=== PATIENT | female | born 1985 | race Caucasian/White ===

== ENCOUNTER 2016-05-22 12:30 | Observation (INO) | payer SELFPAY | END 2016-05-22 15:30 | disposition home or self-care (01) | LOC: FLD 12:30 | PROVIDERS: ADMIT Obstetrics & Gynecology; ATTEND Obstetrics & Gynecology | DX: O47.1 False labor at or after 37 completed weeks of gestation (principal); Z3A.38 38 weeks gestation of pregnancy | CPT/HCPCS: G0378 ==

== ENCOUNTER 2016-05-22 20:50 | Observation (INO) | payer SELFPAY ==
[2016-05-23] MEDS ORDERED: LR 500 ML IV ONE (01:00)
[2016-05-23] MEDS ORDERED: PROMETHAZINE HCL 25 MG/ML INJ IV ONE (01:00)
== END 2016-05-23 10:15 | disposition home or self-care (01) ==
LOC: FLD 20:50
PROVIDERS: ADMIT Obstetrics & Gynecology; ATTEND Obstetrics & Gynecology
DX: O47.1 False labor at or after 37 completed weeks of gestation (principal); Z3A.38 38 weeks gestation of pregnancy
CPT/HCPCS: G0378; J2550

== ENCOUNTER 2016-05-24 06:58 | Inpatient (IN) | payer SELFPAY ==
[2016-05-24] MEDS ORDERED: LIDOCAINE 1% 30 ML SDV SC PRN (07:12)
[2016-05-24] MEDS ORDERED: OXYTOCIN/RINGERS LACTATE 1,000 ML IV PRN (07:12)
[2016-05-24] MEDS ORDERED: EPSOM SALT 454 GM TP PRN (07:12)
[2016-05-24] MEDS ORDERED: TERBUTALINE SULFATE 1 MG/ML VIAL IV PRN (07:12)
[2016-05-24] MEDS ORDERED: LR 1,000 ML IV PRN (07:12)
[2016-05-24] MEDS ORDERED: MINERAL OIL 60 ML OIL TP PRN (07:12)
[2016-05-24] MEDS ORDERED: LIDOCAINE 1% 30 ML SDV ONE (07:16)
[2016-05-24] MEDS ORDERED: AMMONIA AROMATIC 1 EACH AMP IH ONE (07:16)
[2016-05-24] MEDS ORDERED: OXYTOCIN 10 UNIT/ML VIAL ONE (07:17)
[2016-05-24] MEDS ORDERED: MISOPROSTOL 200 MCG TAB ONE (07:17)
[2016-05-24] MEDS ORDERED: TERBUTALINE SULFATE 1 MG/ML VIAL ONE (07:17)
[2016-05-24 07:33] LABS: ADD DIFF? YES; ADD MORPH? NO; ADD SCAN? NO; ATYPICAL LYMPHOCYTE FLAG 0 (0-99); FRAGMENT RBC FLAG 0 (0-99); HEMATOCRIT 42.1 % (38.0-47.0); HEMOGLOBIN 14.7 g/dL (12.6-16.3); LEFT SHIFT FLG 0 (0-99); LIPEMIA HEMOLYSIS FLAG 90 (0-99); MEAN CELL HEMOGLOBIN 30.4 pg (27.9-34.1); MEAN CELL HEMOGLOBIN CONCENTR. 34.9 g/dL (32.4-36.7); MEAN CELL VOLUME 87.2 fL (81.5-99.8); MEAN PLATELET VOLUME 9.4 fL (8.7-11.7); PLATELET CLUMPS FLAG 20 (0-99); PLATELET COUNT 299 10^3/uL (150-400); RED BLOOD CELL COUNT 4.83 10^6/uL (4.18-5.33); RED CELL DISTRIBUTION WIDTH 12.5 % (11.5-15.2)
[2016-05-24 08:06] LABS: PLATELET ESTIMATE ADEQUATE (ADEQ)
--- NOTE | 2016-05-24 09:12 | GHP ---
[f rep st] PREOP HISTORY AND PHYSICAL DATE OF ADMISSION: 05/24/2016 HISTORY UPON ADMISSION: The patient is a 29-year-old , with estimated due date of June 03, 2016, who is at 38 weeks and 4 days who has had prodromal labor with contractions since May 21 in the evening. The patient has had many nights with little sleep. She was evaluated on May 22 and was finger tip, and again re-presented that night and was only 1 cm but having painful contractions for which she received morphine to sleep. She was able to sleep through several hours and went home the morning of May 23. She took Ambien in the afternoon on May 23 and was again able to sleep a couple hours; however, has had painful contractions throughout the night. The patient noted bloody show at approximately 2 a.m. Bag of water intact. The patient was having movement. Upon presentation this morning, the patient was 9 cm by cervical exam by the admitting nurse at -1 station with a bulging bag of water. The patient subsequently had spontaneous rupture of membranes at 0740 with clear fluid. CARE: The patient has been with [facility] with an initial visit at 11 weeks. However, then moved back to the area and has been seen since 25 weeks' gestation. The patient lives in [facility] and was only visiting here at 11 weeks and then moved to this area on a temporary visa in February. The patient has had potential Zika exposure in [facility] but has not been symptomatic. She had an ultrasound performed for growth at 29 weeks and had an estimated weight of 59th percentile with a biparietal diameter at 53rd percentile. There was normal fluid. The patient has had an uncomplicated other than symptoms consistent with the flu at 31 weeks. The patient used [id number] medications for cough and sore throat. LABS: The patient's blood type is A-negative with a negative antibody screen. The patient received RhoGAM on March 10. RPR nonreactive. Rubella immune. Hepatitis B surface antigen negative. HIV negative. TSH was normal. Cytomegalovirus IgG was elevated. Urinalysis and culture were negative. Gonorrhea and chlamydia were negative. The patient had a recent urinary tract infection when seen in November that had been treated with oral antibiotics. Verified testing was negative. One-hour Glucola was normal. Hematocrit checked several times remained in the normal range with the lowest at 38. GBS culture was negative. PAST MEDICAL HISTORY: Only occasional yeast infections and urinary tract infections. PAST SURGICAL HISTORY: Ear surgery at the age of 20 for cosmetic reasons. ALLERGIES: The patient has no known drug allergies. CURRENT MEDICATIONS: Only vitamins and folic acid. SOCIAL HISTORY: The patient is , lives with her , Mikal. 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 The patient and her live in [facility] and are here on a 6 month work visa. The patient is a nonsmoker. No alcohol or drug use. PHYSICAL EXAMINATION: GENERAL: Upon admission, the patient is a well developed , well nourished, female in physical distress with contractions and is exhausted. VITAL SIGNS: Normal. The patient is afebrile. See nursing notes for full documentation. heart tones have shown a category 1 tracing with baseline in the 130s with moderate variability and accelerations. No decelerations have been noted. Contractions are occurring approximately every 3 -4 minutes. CERVIX: On cervical exam the patient has an anterior lip and is at 0 station. The patient initially was pushing; however, is taking a break now due to the persistent lip. There is clear fluid with some bloody show noted. EXTREMITIES: Nontender. ASSESSMENT: Intrauterine at 38 weeks and 4 days, prodromal labor building to active labor last night. GBS negative. Spontaneous rupture of membranes after arrival here. Rh negative and has had RhoGAM. PLAN: The patient has been pushing effectively; however, has a persistent lip and is now breathing through contractions. Expect vaginal delivery. /[id number]/MODL MTDD
[2016-05-24] MEDS ORDERED: ACETAMINOPHEN 325 MG TAB PO PRN (11:29)
--- NOTE | 2016-05-24 11:37 | OBPROC ---
- Labor and Delivery Onset of Contractions Date: 05/23/16 Onset of Contractions Time: 22:00 Onset of Contractions Type: Spontaneous Rupture of Membranes Date: 05/24/16 Rupture of Membranes Time: 07:40 Rupture of Membranes Type: Spontaneous Amniotic Fluid Color: Clear Dilation Complete Time: 08:35 Delivery Type: Spontaneous Placenta Delivery Date: 05/24/16 Placenta Delivery Time: 10:45 Episiotomy/Laceration: 1st Degree, Sulcus (right) Repair: 3-0, Vicryl EBL: 300 Complications: None (except prodromal labor since 2 in evening) - Medications Labor Augmentation/Induction Meds Used: None Anesthesia: Local (Specify) (1 % lidocaine) - Info Infant A Delivery Date: 05/24/16 Delivery Time: 10:39 Sex of Infant: Male Score (1 Min): 9 Score (5 Min): 9
[2016-05-24] MEDS: IBUPROFEN 600 MG TAB PO PRN ×2 (12:24→19:59)
[2016-05-24] MEDS: DOCUSATE SODIUM 100 MG CAP PO PRN (19:59)
[2016-05-25] MEDS: IBUPROFEN 600 MG TAB PO PRN ×4 (02:06→19:54)
--- NOTE | 2016-05-25 07:32 | SOAPPROG ---
SOAP Progress Note Assessment/Plan: Assessment:ff@u scant rubra lochia denies pain with . regular in timing will work on today pain well managed discharge to home tomorrow voiding without difficulty approximated minimal swelling to perineum Plan:pp day 1 05/25/16 07:31 Subjective: Doing well denies pain difficulties. Irregular feeding yesterday. Objective: Vital Signs Temp Pulse Resp BP Pulse Ox 36.6 C 93 16 106/67 97 05/24/16 19:13 05/24/16 19:13 05/24/16 19:13 05/24/16 19:13 05/24/16 19:13 Laboratory Results 05/24/16 07:20 - Time Spent With Patient Time Spent With Patient: 10 minutes - Pending Discharge Pending Discharge Within 24 Hours: Yes Pending Discharge Date: 05/26/16 Pending Discharge Time: 11:00 Physical Exam - Physical Exam General Appearance: WD/WN, alert, no apparent distress Abdomen: other (ff2u) Pelvic Exam: vaginal bleeding (scant rubra lochia) Skin: normal color, warm/dry Extremities: normal range of motion, Diego's sign (negative bilaterally/ dtrs1= bilaterally no clonus) Neuro/Psych: no motor/sensory deficits, alert, normal mood/affect, oriented x 3 ICD10 Worksheet Patient Problems: Problems Problem Status Diagnosed (spontaneous vaginal delivery) Acute
[2016-05-25] MEDS: DOCUSATE SODIUM 100 MG CAP PO PRN ×2 (07:43→19:53)
[2016-05-25 21:40] VITALS: RESP 18; O2SAT 97
[2016-05-26] MEDS: IBUPROFEN 600 MG TAB PO PRN ×2 (01:47→09:41)
--- NOTE | 2016-05-26 07:55 | OBPROG ---
OBG Progress Note Assessment/Plan: Assessment: s/p PPD # 2 - pt is stable Plan: Plan for d/c home Instructions reviewed with pt No Rx Cont PNV Pelvic rest RTC 6 weeks for pp visit 05/26/16 07:51 Subjective: Pt seen and examined. Doing well with no complaints. Minimal pain, moderate lochia. She is without difficulty. Objective: 05/24/16 07:20 Patient ABO/Rh A NEGATIVE 05/24/16 12:05 Temp Pulse Resp BP Pulse Ox 36.9 C 110 H 18 113/76 97 05/25/16 20:00 05/25/16 20:00 05/25/16 20:00 05/25/16 20:00 05/25/16 20:00 Uterine Position/Fundal Height: Umbilicus -2 Uterine Tone: Firm - Physical Exam General Appearance: WD/WN, alert, no apparent distress Respiratory: lungs clear, normal breath sounds Cardiac/Chest: regular rate, rhythm Abdomen: normal bowel sounds, soft, flatus (+) Genitourinary: lochia (moderate) Extremities: non-tender, normal inspection Neuro/Psych: alert, normal mood/affect, oriented x 3 ICD10 Worksheet Patient Problems: Problems Problem Status Diagnosed (spontaneous vaginal delivery) Acute
[2016-05-26] MEDS: DOCUSATE SODIUM 100 MG CAP PO PRN (09:41)
[2016-05-26 11:45] VITALS: BP 107/68; PULSE 83; TEMP 97.8
== END 2016-05-26 12:45 | disposition home or self-care (01) | DRG 775 ==
LOC: OBSVTOIN 06:58 → FLD 06:58 → FOB 14:02
PROVIDERS: ADMIT Obstetrics & Gynecology; ATTEND Obstetrics & Gynecology
DX: O70.0 First degree perineal laceration during delivery (principal); Z3A.38 38 weeks gestation of pregnancy
CPT/HCPCS: J2590; J3105